=== PATIENT | female | born 1975 | race Caucasian/White ===

== ENCOUNTER → 2020-11-21 12:58 | Outpatient (CLI) | payer OTHER, SELFPAY ==
[2020-11-21 10:37] VITALS: BMI 38.1
[2020-11-23 22:02] LABS: HPV APTIMA, High Risk Negative (Negative)
== END ==
PROVIDERS: PCP Student in an Organized Health Care Education/Training Program; Referring Provider Nurse Practitioner Women's Health; Visit Provider Nurse Practitioner Women's Health
DX: Z12.4 Encounter for screening for malignant neoplasm of cervix (principal)
CPT/HCPCS: 87624; 88175; G0145

== ENCOUNTER → 2020-11-24 12:54 | Outpatient (CLI) | payer OTHER, SELFPAY ==
[2020-11-21 10:37] VITALS: BMI 38.1
--- NOTE | 2020-11-24 12:57 | BI_ITS ---
MAMMOGRAPHY - BILATERAL SCREENING 3-D TOMOSYNTHESIS REASON FOR EXAM: Female, 45 years old. screening for breast cancer PERTINENT HISTORY: No significant family history. TECHNIQUE: 2-D mammograms and 3-D Tomosynthesis of the breast (s) were performed. CAD was performed. COMPARISON: 05/28/2019 FINDINGS: The breast composition is of scattered fibroglandular tissue. Tiny benign egg-shell type calcification 2 o''clock on the left. No dense spiculated masses or suspicious microcalcifications are identified. No architectural distortion is identified. There is no skin thickening or retraction. There are benign-appearing lymph nodes in the axillary areas bilaterally There has been no significant change since the prior study since 05/28/2019. BI/SCRN MAMM (CAD)W/AIDE BILAT IMPRESSION: No mammographic signs of malignancy. Routine yearly mammograms recommended. ASSESSMENT CATEGORY: BIRADS Category 1: Negative. A letter regarding these results will be sent to the patient by the facility within 30 days. FOLLOW UP RECOMMENDATION: Yearly follow up mammogram recommended. (A) Approximately 10% of breast cancers are not detected by mammography. A normal mammogram should not delay biopsy of a clinically suspicious abnormality. Electronically Signed: Claudine Quintana, at 13:55 EDT Tel , Service support ,
== END ==
PROVIDERS: PCP Student in an Organized Health Care Education/Training Program; Referring Provider Nurse Practitioner Women's Health; Visit Provider Nurse Practitioner Women's Health
DX: Z12.31 Encounter for screening mammogram for malignant neoplasm of breast (principal)
CPT/HCPCS: 77063; 77067

== ENCOUNTER → 2021-12-08 | Outpatient (CLI) | payer OTHER, SELFPAY ==
--- NOTE | 2021-12-08 08:29 | BI_ITS ---
MAMMOGRAPHY - BILATERAL SCREENING REASON FOR EXAM: Female, 46 years old. Routine annual screening examination. PERTINENT HISTORY: Mother with breast cancer. TECHNIQUE: Digital bilateral breast aide (3D mammographic acquisition) in the CC and MLO projections. 2-D mediolateral oblique (MLO) and craniocaudad (CC) views of both breasts were obtained. CAD: Full Field Digital Mammography with Computer Added Detection was performed. COMPARISON: Comparison is made with prior study dated 11/24/2020. FINDINGS: Breast Composition: There are scattered areas of fibroglandular density. There are no dominant masses or suspicious calcifications. Stable benign-appearing bilateral axillary lymph nodes. No other significant abnormalities are identified. There has been no significant change since the prior study. BI/SCRN MAMM (CAD)W/AIDE BILAT IMPRESSION: Stable bilateral screening mammogram. Yearly follow-up mammogram recommended. (A) ASSESSMENT CATEGORY: BIRADS Category 2: Benign. A letter regarding these results will be sent to the patient by the facility within 30 days. Approximately 10% of breast cancers are not detected by mammography. A normal mammogram should not delay biopsy of a clinically suspicious abnormality. [id number] Electronically Signed: Ganesh Johnson MD at 9:17 EDT ,
== END | disposition home or self-care (01) ==
LOC: OPBI 08:28
PROVIDERS: PCP Student in an Organized Health Care Education/Training Program; Referring Provider Nurse Practitioner Women's Health; Visit Provider Nurse Practitioner Women's Health
DX: Z12.31 Encounter for screening mammogram for malignant neoplasm of breast (principal); Z80.3 Family history of malignant neoplasm of breast
CPT/HCPCS: 77063; 77067

== ENCOUNTER → 2022-12-10 | Outpatient (CLI) | payer OTHER, SELFPAY ==
--- NOTE | 2022-12-10 08:30 | BI_ITS ---
MAMMOGRAPHY - BILATERAL SCREENING REASON FOR EXAM: Female, 47 years old. Routine annual screening examination. PERTINENT HISTORY: Mother with breast cancer. TECHNIQUE: Digital bilateral breast aide (3D mammographic acquisition) in the CC and MLO projections. 2-D mediolateral oblique (MLO) and craniocaudad (CC) views of both breasts were obtained. CAD: Full Field Digital Mammography with Computer Added Detection was performed. COMPARISON: Comparison is made with prior study dated December 08, 2021 and November 24, 2020. FINDINGS: Breast Composition: There are scattered areas of fibroglandular density. There are no dominant masses or suspicious calcifications. Stable fat-containing bilateral axillary lymph nodes. No other significant abnormalities are identified. There has been no significant change since the prior study. BI/SCRN MAMM (CAD)W/AIDE BILAT IMPRESSION: Stable bilateral screening mammogram. Yearly follow-up mammogram recommended. (A) ASSESSMENT CATEGORY: BIRADS Category 2: Benign. A letter regarding these results will be sent to the patient by the facility within 30 days. Approximately 10% of breast cancers are not detected by mammography. A normal mammogram should not delay biopsy of a clinically suspicious abnormality. [id number] Electronically Signed: Ganesh Johnson MD at 13:13 EDT ,
== END | disposition home or self-care (01) ==
LOC: OPBI 08:28
PROVIDERS: PCP Student in an Organized Health Care Education/Training Program; Referring Provider Registered Nurse; Visit Provider Registered Nurse
DX: Z12.31 Encounter for screening mammogram for malignant neoplasm of breast (principal)
CPT/HCPCS: 77063; 77067

== ENCOUNTER → 2023-06-12 | Outpatient (CLI) | payer OTHER, SELFPAY ==
[2023-06-12 16:33] LABS: Absolute Lymphocyte Count 3.92 X10^3/uL (0.83-4.51); Basophil# 0.11 X10^3/uL; Basophil% 0.7 % (0-1); Eosinophil# 2.17 X10^3/uL; Eosinophils% 14.5 % (0-5); Hematocrit 39.2 % (37-47); Hemoglobin 12.4 g/dL (12.0-15.0); Lymphocyte # 3.92 X10^3/ul (0.83-4.51); Lymphocyte % 26.2 % (19-41); Mean Corp Hgb Conc 31.6 g/dL (32-36); Mean Corpuscular Volume 85.2 fL (81-99); Mean Platelet Vol. 11.4 fl (6.2-12.0); Monocyte# 0.72 X10^3/uL; Monocyte% 4.8 % (0-10); NRBC Flagged by Analyzer 0 % (0-5); Neutrophil # 7.99 X10^3/uL (2.7-7.7); Neutrophil % 53.3 % (47-70); POSITIVE DIFFERENTIAL YES; Platelet Count 341 K/mm3 (150-450); RBC Distribution Width CV 13.5 % (11.6-14.6); RBC Distribution Width SD 42.2 fl (35.1-43.9)
[2023-06-12 16:44] LABS: Differential Indicated SCAN CRITERIA MET
[2023-06-12 16:53] LABS: ALB/GLOB Ratio 0.8 RATIO (0.9-2.4); AST(SGOT) 12 U/L (15-37); Alanine Aminotransfer ALT/SGPT 17 U/L (13-56); Albumin, Serum 3.3 g/dL (3.2-5.0); Alkaline Phosphatase 102 U/L (45-117); Anion Gap 6 (5-15); BUN 15 mg/dL (7-18); BUN/Creat Ratio 20.4 RATIO (10-20); Calcium,Total 8.7 mg/dL (8.5-10.1); Chloride 109 mmol/L (98-107); Cholesterol 174 mg/dL (200); Creatinine, Serum 0.74 mg/dL (0.55-1.02); EST Glomerular Filtration Rate 90 mL/min (>60); Est Glom Filt Rate - Afr Amer 109 mL/min (>60); Globulin 4.3 g/dL (2.2-4.2); Glucose 89 mg/dL (74-106); High Density Lipoprotein 60 mg/dL; Potassium 3.9 mmol/L (3.5-5.1); Protein, Total 7.6 g/dL (6.4-8.2); Sodium Level 141 mmol/L (136-145); Triglycerides 110 mg/dL; Very Low Density Lipoprotein 22 mg/dL (5-40)
[2023-06-12 16:57] LABS: Differential Comment SCANNED
== END | disposition home or self-care (01) ==
LOC: BIMLAB 15:00
PROVIDERS: PCP Internal Medicine; Referring Provider Internal Medicine; Visit Provider Internal Medicine
DX: I10 Essential (primary) hypertension (principal)
CPT/HCPCS: 36415; 80053; 80061; 85025

== ENCOUNTER → 2023-06-28 | Outpatient (CLI) | payer OTHER, SELFPAY ==
--- OUTSIDE RECORDS SUMMARY | 2023-06-28 15:18 | XMS RPT_ITS | CCD ---
Author Name Unknown Address [address] [place] [address] Organization [facility] Care Team Providers Care Database Marketing Manager Name Role Phone Gavin Wang DO Jose Primary Care Provider Allergies Allergy Classification Reported Allergen(s) Allergy Type Date of Onset Reaction(s) Facility (6 sources) Azithromycin; Translations: [AZITHROMYCIN] Drug Allergy 6 Mental Status Change, Vomiting [facility] (5 sources) Environmental allergies [Other] Propensity to adverse reactions 8 [facility] (1 source) OTHER; Translations: [OTHER] Propensity to adverse reactions (disorder) 8 [facility] Repository Medications Current Medications Medication Drug Class(es) Dates Sig (Normalized) Sig (Original) ofloxacin 3 mg/ml ophthalmic solution (1 source) Quinolone Antimicrobial Start: 10-09-2021 End: 10-16-2021 take 2 drop(s) into the eye(s) every four hours ofloxacin (OCUFLOX) 0.3 % ophthalmic solution Use 2 Drops in both eyes every 4 hours for 7 days. 10 mL 0 10/09/2021 10/16/2021 Active Completed/Discontinued Medications Medication Drug Class(es) Dates Sig (Normalized) Sig (Original) >Blood Pressure Cuff Home (5 sources) Start: 12-06-2017 >Blood Pressure Cuff Home Indications: Borderline high blood pressure HOME BP CUFF, DX: HTN LABILE 1 Each 0 12/06/2017 Active Problems Active Problems Problem Classification Problem Date Documented Date Episodic/Chronic Anxiety disorders (5 sources) Acute stress disorder; Translations: [Acute stress reaction] Onset: 12-05-2018 12-05-2018 Chronic Asthma (6 sources) Uncomplicated moderate persistent asthma; Translations: [Moderate persistent asthma, uncomplicated] Onset: 12-27-2016 12-27-2016 Chronic Inflammation; infection of eye (except that caused by tuberculosis or sexually transmitteddisease) (1 source) Acute conjunctivitis of bilateral eyes; Translations: [Unspecified acute conjunctivitis, bilateral] Episodic Other circulatory disease (1 source) Elevated blood-pressure reading without diagnosis of hypertension; Translations: [Elevated blood-pressure reading, without diagnosis of hypertension] 02-08-2023 Episodic Other lower respiratory disease (1 source) Cough; Translations: [Acute cough] Episodic Other lower respiratory disease (1 source) H/O: asthma; Translations: [Personal history of other diseases of the respiratory system] Episodic Other screening for suspected conditions (not mental disorders or infectious disease) (2 sources) Patient encounter status; Translations: [Encounter for screening mammogram for malignant neoplasm of breast] Episodic Other upper respiratory disease (5 sources) Seasonal allergy; Translations: [Other seasonal allergic rhinitis] Onset: 06-27-2009 06-27-2009 Chronic Other upper respiratory infections (2 sources) Viral upper respiratory tract infection; Translations: [Acute upper respiratory infection, unspecified] Episodic Past or Other Problems Problem Classification Problem Date Documented Da te Episodic/Chronic Other connective tissue disease (5 sources) Impingement syndrome of right shoulder region; Translations: [Impingement syndrome of right shoulder] Onset: 12-26-2018 12-26-2018 Episodic Results Test Name Value Interpretation Reference Range Facil ity Vital Signs Date Time Vital Sign Value Performing Clinician Gee baeza 02-08-2023 09:26-0400 Body temperature 97.39 [degF] Vitor Luz MD Work Phone: [facility] 02-08-2023 09:26-0400 Body weight 83.55 kg Vitor Luz MD Work Phone: [facility] 02-08-2023 09:26-0400 Diastolic blood pressure 78 mm[Hg] Vitor Luz MD Work Phone: [facility] 02-08-2023 09:26-0400 Heart rate 72 /min Vitor Luz MD Work Phone: [facility] 02-08-2023 09:26-0400 Respiratory rate 18 /min Vitor Luz MD Work Phone: [facility] 02-08-2023 09:26-0400 SaO2% (BldA) [Mass fraction] 97 % Vitor Luz MD Work Phone: [facility] 02-08-2023 09:26-0400 Systolic blood pressure 187 mm[Hg] Vitor Luz MD Work Phone: [facility] 01-12-2022 14:23-0400 Body temperature 98.8 [degF] Austin Bebo VISION SPECIALIST.PILATES COORDINATOR Work Phone: [facility] 01-12-2022 14:23-0400 Body weight 90.63 kg Austin Bebo VISION SPECIALIST.PILATES COORDINATOR Work Phone: [facility] 01-12-2022 14:23-0400 Diastolic blood pressure 96 mm[Hg] Austin Bebo VISION SPECIALIST.PILATES COORDINATOR Work Phone: [facility] 01-12-2022 14:23-0400 Heart rate 98 /min Austin Bebo VISION SPECIALIST.PILATES COORDINATOR Work Phone: [facility] 01-12-2022 14:23-0400 Respiratory rate 20 /min Austin Bebo VISION SPECIALIST.PILATES COORDINATOR Work Phone: [facility] 01-12-2022 14:23-0400 SaO2% (BldA) [Mass fraction] 98 % Austin Bebo VISION SPECIALIST.PILATES COORDINATOR Work Phone: [facility] 01-12-2022 14:23-0400 Systolic blood pressure 150 mm[Hg] Austin Bebo VISION SPECIALIST.PILATES COORDINATOR Work Phone: [facility] 10-09-2021 16:23-0400 Body temperature 98.8 [degF] Jennifer Athy PA-C Work Phone: [facility] 10-09-2021 16:23-0400 Body weight 93.35 kg Jennifer Athy PA-C Work Phone: [facility] 10-09-2021 16:23-0400 Diastolic blood pressure 92 mm[Hg] Jennifer Athy PA-C Work Phone: [facility] 10-09-2021 16:23-0400 Heart rate 92 /min Jennifer Marina MESSER Work Phone: [facility] 10-09-2021 16:23-0400 Respiratory rate 20 /min Jennifer Marina COHEN-Lisa Work Phone: [facility] 10-09-2021 16:23-0400 SaO2% (BldA) [Mass fraction] 99 % Jennifer Gray PA-C Work Phone: [facility] 10-09-2021 16:23-0400 Systolic blood pressure 154 mm[Hg] Jennifer Gray PA-C Work Phone: [facility] Encounters Encounter Date Encounter Type Care Provider Facility Start: 02-08-2023 End: 02-08-2023 ambulatory GAVIN WANG Facility:[facility] Start: 02-08-2023 End: 02-08-2023 Patient encounter procedure Vitor Luz MD Work Phone: [facility] Procedures Date Procedure Procedure Detail Performing Clinician Start: 01-12-2022 Radiologic exam ches t 2 views Austin Lagunas VISION SPECIALIST.PILATES COORDINATOR Work Phone: Start: 01-12-2022 STREP A MOLECULAR (POC) [facility] Provider Start: 05-28-2019 Mammography Jennifer Gray PA-C Work Phone: Start: 12-05-2018 Adult depression scr eening assessment Jennifer Gray PA-C Work Phone: Plan of Treatment Date Care Activity Detail Author Start: 10-20-2025 Urine microalbumin profile DTAP,TDAP,TD (2 - Td or Tdap) [facility] Start: 02-01-2023 Influenza vaccination INFLUENZA (#1) [facility] Start: 06-03-2022 DEPRESSION ASSESSMENT DEPRESSION ASSESSMENT [facility] Start: 02-22-2022 LIPID SCREEN LIPID SCREEN [facility] Start: 02-01-2022 Influenza vaccination [facility] Start: 08-05-2021 COVID-19 VACCINE (3 - Booster) COVID-19 VACCINE (3 - Booster) [facility] Start: 05-02-2021 COVID-19 VACCINE (3 - Moderna series) COVID-19 VACCINE (3 - Moderna series) [facility] Start: 08-12-2020 COLOGUARD (FIT-DNA) COLOGUARD (FIT-DNA) [facility] Start: 08-12-2020 Colonoscopy COLONOSCOPY [facility] Start: 08-12-2020 COLORECTAL CANCER SCREENING COLORECTAL CANCER SCREENING [facility] Start: 08-12-[address] COLONOGRAPHY [facility] Start: 08-12-2020 DIABETES SCREEN DIABETES SCREEN [facility] Start: 08-12-2020 FECAL OCCULT BLOOD FECAL OCCULT BLOOD [facility] Start: 08-12-2020 SIGMOIDOSCOPY SIGMOIDOSCOPY [facility] Start: 05-28-2020 Mammography MAMMOGRAM [facility] Start: 12-06-2019 Adult depression screening assessment DEPRESSION SCREENING [facility] Start: 12-06-2019 ANNUAL PCP TEAM CHRONIC DISEASE VISIT ANNUAL PCP TEAM CHRONIC DISEASE VISIT [facility] Start: 10-06-2019 HPV TESTING HPV TESTING [facility] Start: 10-06-2019 PAP TESTING PAP TESTING [facility] Start: 02-28-2018 PNEUMOCOCCAL (2 - PCV) PNEUMOCOCCAL (2 - PCV) [facility] Start: 08-12-1993 HEPATITIS C SCREENING HEPATITIS C SCREENING [facility] Start: 1975 HEPATITIS B (1 of 3 - 3-dose series) HEPATITIS B (1 of 3 - 3-dose series) [facility] ALERE STREP A TEST (AG) ALERE ST REP A TEST (AG) Lab Routine Sore throat Ordered: 01/12/2022 [facility] Work Phone: Immunizations Immunization Date Immunization Notes Care Provider Stalin aguilar 03-07-2021 COVID-19 vaccine, fu ll dose (MODERNA) Jennifer Gray PA-C Work Phone: [facility] 03-09-2017 influenza, injectabl e, quadrivalent, contains preservative Jennifer Gray PA-C Work Phone: [facility] 02-28-2017 pneumococcal polysaccharide vaccine, 23 valent Jennifer Gray PA-C Work Phone: [facility] 02-25-2016 influenza, injectabl e, quadrivalent, contains preservative Jennifer Gray PA-C Work Phone: [facility] 10-21-2015 tetanus toxoid, redu brandon diphtheria toxoid, and acellular pertussis vaccine, adsorbed Jennifer Athy PA-C Work Phone: [facility] Work Phone: 03-05-2015 influenza, injectabl e, quadrivalent, contains preservative Jennifer Athy PA-C Work Phone: [facility] Work Phone: 03-11-2014 influenza, seasonal, injectable Jennifer Athy PA-C Work Phone: [facility] 03-14-2013 influenza virus vacc ine, unspecified formulation Jennifer Athy PA-C Work Phone: [facility] 03-01-2012 influenza virus vacc ine, unspecified formulation Jennifer Athy PA-C Work Phone: [facility] Work Phone: 03-22-2010 influenza virus vacc ine, unspecified formulation Jennifer Athy PA-C Work Phone: [facility] Work Phone: 09-01-2009 RHO(D) immune globul in- IV or IM Jennifer Athy PA-C Work Phone: [facility] 04-08-2009 influenza virus vacc ine, unspecified formulation Jennifer Athy PA-C Work Phone: [facility] Work Phone: 03-31-2009 novel influenza-H1N1 -09, all formulations Jennifer Athy PA-C Work Phone: [facility] 04-17-2008 influenza virus vacc ine, unspecified formulation Jennifer Athy PA-C Work Phone: [facility] Work Phone: 04-12-2007 influenza virus vacc ine, unspecified formulation Jennifer Athy PA-C Work Phone: [facility] Work Phone: 04-02-2006 influenza virus vacc ine, unspecified formulation Jennifer Athy PA-C Work Phone: [facility] Work Phone: Payers Date Payer Category Payer Unknown MMO MMO [employer] [id number] 2020-Present [phone] [address] [place] [address] PPO [id number] 2020 Unknown [id number] 2020 Unknown [id number] Social History Date Type Detail Facility Start: 01-29-2011 Tobacco smoking stat [facility] Never smoked tobacco [facility] Start: 10-09-2021 End: 02-08-2023 Alcohol intake Current non-drinker of alcohol (finding) [facility] Start: 1975 Sex Assigned At Not on file [facility] Start: 01-29-2011 Tobacco use and exposure Smokeless tobacco non-user [facility] Work Phone: Start: 01-02-2022 End: 01-12-2022 Exposure to SARS-CoV-2 (event) Not sure [facility] Start: 05-11-2020 End: 02-08-2023 History of Social function [facility] Start: 05-11-2020 End: 02-08-2023 Tobacco use panel [facility] Adult Depression Screening Assessment 0 [facility] Clinical Notes 10-24-2009 to 02-08-2023 Vitor Luz MD - 02/08/2023 9:31 AM Becky Lagunas APRN.PILATES COORDINATOR - 01/12/2022 5:57 PM Daysi Jaimes LPN - 12/13/2021 11:58 AM Migel Bella LPN - 11/23/2021 2:05 PM EDT Note Date & Type Note Facility 02-08-2023 Note HNO ID: [id number] Author: Vitor Luz MD Service: ? Author Type: Physician Type: Progress Notes Filed: 02/08/2023 10:05 AM Note Text: Patient presents with: Chest Congestion: SOB x1 week, asthma HPI: Feeling asthma is flared up for the last week. Woke up and used nebulizer twice last night. Prescribed prednisone for viral URI induced asthma exacerbation 1 year ago. Last primary care visit here was in 2019. Positive symptoms: Shortness of breath, Wheezing, Chest tightness, Negative symptoms: Cough, Nasal Congestion, Rhinorrhea, Fever, OTC: albuterol HFA once during the day. Uses pulmicort periodically - last used a week ago. MEDICATIONS: Current Outpatient Medications Medication Sig albuterol (PROVENTIL) 2.5 mg /3 mL (0.083 %) nebulizer solution Use 3 mL via nebulizer every 4 hours as needed. Use over 5-15minutes. ENSKYCE 0.15-0.03 mg per tablet take 1 tablet by mouth once daily budesonide (PULMICORT FLEXHALER) 90 mcg/actuation aepb Inhale 1 Puff as instructed twice daily. albuterol sulfate (PROAIR RESPICLICK) 90 mcg/actuation aepb Inhale 2 Puffs as instructed every 4 hours. cetirizine (ZYRTEC) 10 mg tablet Take 10 mg by mouth once daily. multivitamin tablet Take 1 tablet by mouth once daily. benzonatate (TESSALON PERLES) 100 mg capsule Take 2 capsules by mouth three times daily as needed. (Patient not taking: Reported on 01/12/2022) escitalopram oxalate (LEXAPRO) 10 mg tablet Take 1 tablet by mouth once daily. meloxicam (MOBIC) 15 mg tablet Take 1 tablet by mouth once daily. Take with food. (Patient not taking: Reported on 04/14/2019 ) montelukast (SINGULAIR) 10 mg tablet Take 1 tablet by mouth daily at bedtime. >Blood Pressure Cuff Home HOME BP CUFF, DX: HTN LABILE (Patient not taking: Reported on 12/24/2018 ) No current facility-administered medications for this visit. ALLERGIES: ALLERGIES Allergen Reactions Environmental Aller* Cats, dogs, dust mites, molds, trees, grasses, weeds, ragweed Zithromax [Azithrom* Mental Status Change, Vomiting dizzy VITALS: BP 187/78 Pulse 72 Temp 36.3 ?C (97.4 ?F) Resp 18 Wt 83.6 kg (184 lb 3.2 oz) LMP 12/19/2018 (Exact Date) SpO2 97% BMI 34.80 kg/m? Last 8 Encounter BP Readings: Date: BP: 02/08/2023 187/78 01/12/2022 150/96 10/09/2021 154/92 04/14/2019 136/86 12/26/2018 150/86 12/24/2018 136/86 12/05/2018 130/72 12/06/2017 140/78 PHYSICAL EXAM: GEN: Pleasant, in no acute distress. HEENT: PERRL, EOMI, conjunctiva clear Ears: canals clear. TMs without erythema, bulge, or effusion Sinuses: non-tender frontal sinus, non-tender maxillary sinuses Throat: moist mucous membranes, no erythema, no exudate Neck: supple, no thyromegaly, no lymphadenopathy HEART: regular rate and rhythm, no murmurs LUNGS: bilateral musical wheezes, no crackles, no increased WOB ASSESSMENT/PLAN: 1. Moderate persistent asthma, uncomplicated - ICD9: 493.90, ICD10: J45.40 (primary diagnosis) - PREDNISONE 20 MG TABLET 5 day burst. She reports an episode of sweating and heart racing while taking a taper a few years ago and has done OK with bursts since. 2. Elevated blood pressure reading without diagnosis of hypertension - ICD9: 796.2, ICD10: R03.0 Hypertension range BP readings here consistently. Advised follow up with primary care for hypertension and asthma. She is planning to schedule with the [facility] in [facility]. Vitor Luz MD [facility] 02-08-2023 History of Presen t illness Narrative Patient presents with: Chest Congestion: SOB x1 week, asthma HPI: Feeling asthma is flared up for the last week. Woke up and used nebulizer twice last night. Prescribed prednisone for viral URI induced asthma exacerbation 1 year ago. Last primary care visit here was in 2019. Positive symptoms: Shortness of breath, Wheezing, Chest tightness, Negative symptoms: Cough, Nasal Congestion, Rhinorrhea, Fever, OTC: albuterol HFA once during the day. Uses pulmicort periodically - last used a week ago. MEDICATIONS: Current Outpatient Medications Medication Sig albuterol (PROVENTIL) 2.5 mg /3 mL (0.083 %) nebulizer solution Use 3 mL via nebulizer every 4 hours as needed. Use over 5-15minutes. ENSKYCE 0.15-0.03 mg per tablet take 1 tablet by mouth once daily budesonide (PULMICORT FLEXHALER) 90 mcg/actuation aepb Inhale 1 Puff as instructed twice daily. albuterol sulfate (PROAIR RESPICLICK) 90 mcg/actuation aepb Inhale 2 Puffs as instructed every 4 hours. cetirizine (ZYRTEC) 10 mg tablet Take 10 mg by mouth once daily. multivitamin tablet Take 1 tablet by mouth once daily. benzonatate (TESSALON PERLES) 100 mg capsule Take 2 capsules by mouth three times daily as needed. (Patient not taking: Reported on 01/12/2022) escitalopram oxalate (LEXAPRO) 10 mg tablet Take 1 tablet by mouth once daily. meloxicam (MOBIC) 15 mg tablet Take 1 tablet by mouth once daily. Take with food. (Patient not taking: Reported on 04/14/2019 ) montelukast (SINGULAIR) 10 mg tablet Take 1 tablet by mouth daily at bedtime. >Blood Pressure Cuff Home HOME BP CUFF, DX: HTN LABILE (Patient not taking: Reported on 12/24/2018 ) No current facility-administered medications for this visit. ALLERGIES: ALLERGIES Allergen Reactions Environmental Aller* Cats, dogs, dust mites, molds, trees, grasses, weeds, ragweed Zithromax [Azithrom* Mental Status Change, Vomiting dizzy VITALS: BP 187/78 Pulse 72 Temp 36.3 C (97.4 F) Resp 18 Wt 83.6 kg (184 lb 3.2 oz) LMP 12/19/2018 (Exact Date) SpO2 97% BMI 34.80 kg/m Last 8 Encounter BP Readings: Date: BP: 02/08/2023 187/78 01/12/2022 150/96 10/09/2021 154/92 04/14/2019 136/86 12/26/2018 150/86 12/24/2018 136/86 12/05/2018 130/72 12/06/2017 140/78 PHYSICAL EXAM: GEN: Pleasant, in no acute distress. HEENT: PERRL, EOMI, conjunctiva clear Ears: canals clear. TMs without erythema, bulge, or effusion Sinuses: non-tender frontal sinus, non-tender maxillary sinuses Throat: moist mucous membranes, no erythema, no exudate Neck: supple, no thyromegaly, no lymphadenopathy HEART: regular rate and rhythm, no murmurs LUNGS: bilateral musical wheezes, no crackles, no increased WOB ASSESSMENT/PLAN: 1. Moderate persistent asthma, uncomplicated - ICD9: 493.90, ICD10: J45.40 (primary diagnosis) - PREDNISONE 20 MG TABLET 5 day burst. She reports an episode of sweating and heart racing while taking a taper a few years ago and has done OK with bursts since. 2. Elevated blood pressure reading without diagnosis of hypertension - ICD9: 796.2, ICD10: R03.0 Hypertension range BP readings here consistently. Advised follow up with primary care for hypertension and asthma. She is planning to schedule with the [facility] in [facility]. Vitor Luz MD documented in this encounter [facility] 01-12-2022 History of Presen t illness Narrative Subjective HPI HPI Paige Troncoso is a 46 year old female who presents today for CC of wheezing for 2 weeks, st, congsetion for 2 days. Has tried otc medication and asthma medication for relief. Symptoms are worsened by nothing. Risk factors hx of asthma. Denies cp, ear pain, fever, rash. .Patient presents with: Sore Throat: ARRIETA, cough, asthma flare x2 days PAST MEDICAL HISTORY Diagnosis Date Asthma ALLERGY-INDUCED Contact dermatitis and other eczema due to other specified agent 01/12/2008 EXCORIATION////SUPERFICIAL INJURY NEC 01/12/2008 GERD (gastroesophageal reflux disease) 06/27/2009 XEROSIS////SEBACEOUS GLAND DIS NEC 01/12/2008 PAST SURGICAL HISTORY Procedure Laterality Date DELIVERY ONLY 2005 TWINS DELIVERY ONLY 2009 , low transverse ALLERGIES Environmental Allergies [Other] and Zithromax [Azithromycin] MEDICATIONS ENSKYCE 0.15-0.03 mg per tablet take 1 tablet by mouth once daily budesonide (PULMICORT FLEXHALER) 90 mcg/actuation aepb Inhale 1 Puff as instructed twice daily. albuterol sulfate (PROAIR RESPICLICK) 90 mcg/actuation aepb Inhale 2 Puffs as instructed every 4 hours. cetirizine (ZYRTEC) 10 mg tablet Take 10 mg by mouth once daily. multivitamin tablet Take 1 tablet by mouth once daily. predniSONE (DELTASONE) 20 mg tablet Take 2 tablets by mouth once daily for 5 days. albuterol (PROVENTIL) 2.5 mg /3 mL (0.083 %) nebulizer solution Use 3 mL via nebulizer every 4 hours as needed. Use over 5-15minutes. benzonatate (TESSALON PERLES) 100 mg capsule Take 2 capsules by mouth three times daily as needed. (Patient not taking: Reported on 01/12/2022) escitalopram oxalate (LEXAPRO) 10 mg tablet Take 1 tablet by mouth once daily. meloxicam (MOBIC) 15 mg tablet Take 1 tablet by mouth once daily. Take with food. (Patient not taking: Reported on 04/14/2019 ) montelukast (SINGULAIR) 10 mg tablet Take 1 tablet by mouth daily at bedtime. >Blood Pressure Cuff Home HOME BP CUFF, DX: HTN LABILE (Patient not taking: Reported on 12/24/2018 ) FAMILY HISTORY Problem Relation Age of Onset Breast Cancer Mother 46 Diabetes Mother Emphysema Maternal Grandfather Heart Maternal Grandfather Alzheimer's Disease Paternal Grandmother Social History Tobacco Use Smoking status: Never Smokeless tobacco: Never Substance Use Topics Alcohol use: No Drug use: No ROS Objective Blood pressure 150/96, pulse 98, temperature 37.1 C (98.8 F), resp. rate 20, weight 90.6 kg (199 lb 12.8 oz), last menstrual period 12/19/2018, SpO2 98 %. Physical Exam Constitutional: General: She is not in acute distress. Appearance: She is not toxic-appearing or diaphoretic. HENT: Head: Normocephalic and atraumatic. Mouth/Throat: Lips: [place]. Mouth: Mucous membranes are moist. Pharynx: Oropharyngeal exudate and posterior oropharyngeal erythema present. No pharyngeal swelling. Cardiovascular: Rate and Rhythm: Normal rate and regular rhythm. Heart sounds: Normal heart sounds, S1 normal and S2 normal. Pulmonary: Effort: Pulmonary effort is normal. Breath sounds: Wheezing present. No decreased breath sounds, rhonchi or rales. Comments: Scattered bilat. Neurological: Mental Status: She is alert and oriented to person, place, and time. Gait: Gait is intact. ASSESSMENT/PLAN: 1. Acute cough - ICD9: 786.2, ICD10: R05.1 (primary diagnosis) Asthma flair and viral illness. Discussed quarantine, social distancing otc medications discussed Push fluids -If you experience chest pain/shortness of breath go to ER. - XR CHEST 2V FRONTAL/LAT - 2019 CORONAVIRUS - PREDNISONE 20 MG TABLET 2. Sore throat - ICD9: 462, ICD10: J02.9 - suspect viral - Alere Strep Test negative, no culture pending - Discussed supportive care treatment with fluids, rest and analgesia. - Contagious dz precautions discussed- including considered contagious until on antibiotics for 24 hours - ALERE STREP A TEST (AG) - PREDNISONE 20 MG TABLET 3. History of asthma - ICD9: V12.69, ICD10: Z87.09 Steroid ordered Nebulizer fluid ordered. - PREDNISONE 20 MG TABLET - ALBUTEROL SULFATE 2.5 MG/3 ML (0.083 %) SOLUTION FOR NEBULIZATION Agrees to plan Austin Lagunas APRN.GORDY documented in this encounter [facility] 12-13-2021 History of Presen t illness Narrative Pt. informed via My Chart. Lizbeth Jaimes LPN TC to patient, left message to return call Please clarify if patient has been notified/called and is willing to complete the colonoscopy if orders are placed? Gavin Wang DO Patient due for Colonoscopy screening. Cleared for open access pending completion of open access questionaire. Please contact patient and schedule procedure Yimi Holt documented in this encounter [facility] 11-21-2021 Instructions Yimi Holt - 11/21/2021 2:15 PM EDT Images from the original note were not included. Bowel Preparation Instructions for: Golytely, Nulytely, Trilyte or Colyte (polyethylene glycol 3350 and electrolytes) IF YOU DO NOT FOLLOW THESE DIRECTIONS, YOUR COLONOSCOPY WILL BE CANCELLED. Sandy Instructions: Your bowel must be empty so that your doctor can clearly view your colon. Follow all of the instructions in this handout EXACTLY as they are written. Do NOT eat any solid food the ENTIRE day before your colonoscopy. Drink only clear liquids. Buy your bowel preparation at least 5 days before your colonoscopy. TRANSPORTATION on the Day of Your Exam A responsible person MUST be present with you at Check In prior to your colonoscopy and REMAIN in the endoscopy area until you are discharged. You are NOT ALLOWED to drive, take a taxi or bus, or leave the Endoscopy Center ALONE. If you do not have a responsible tier truck driver (family member or friend) with you to take you home, your exam cannot be done with sedation and will be cancelled. Please bring a list of all of your current medications, including any Over-the Counter medications with you. Medications If you take insulin, diabetic medications or blood thinners such as Coumadin (warfarin), Plavix (clopidogrel), Ticlid (ticlopidine hydrochloride), Agrylin (anagrelide), Xarelto (Rivaroxaban), Pradaxa (Dabigatran), Eliquis (Apixaban), and Effient (Prasugrel). You MUST call the doctors who orders those medicines for instructions on altering the dosage before your colonoscopy. All other medications should be taken the day of the exam with a sip of water including ASPIRIN. Five (5) Days Before Your Colonoscopy Do NOT take medicines that stop diarrhea - such as Imodium, Kaopectate, or Pepto Bismol. Do NOT take fiber supplements - such as Metamucil, Citrucel, or Perdiem. Do NOT take products that contain iron - such as multi-vitamins (the label lists what is in the products). Do NOT take Vitamin E. Buy the prescription bowel preparation solution at your local pharmacy or drugstore pharmacy. 1 05/2019 Bowel Preparation Instructions for: Golytely, Nulytely, Trilyte or Colyte (polyethylene glycol 3350 and electrolytes) Three (3) Days Before Your Colonoscopy Do NOT eat high-fiber foods - such as popcorn, beans, seeds (flax, sunflower, quinoa), multigrain bread, nuts, salad/vegetables, or fresh and dried fruit. One (1) Day Before Your Colonoscopy Only drink clear liquids the ENTIRE DAY before your colonoscopy. Do NOT eat any solid foods. Drink at least 8 ounces of clear liquids every hour after waking up. The clear liquids you can drink include: Clear Liquid (NO RED LIQUIDS) DO NOT DRINK Gatorade, Pedialyte or Powerade Clear broth or bouillon Coffee or tea (no milk or non-dairy creamer) Carbonated and non-carbonated soft drinks Adam-Aid or other fruit flavored drinks Strained fruit juices (no pulp) Jell-O, popsicles, hard candy Water Alcohol Milk or non-dairy creamers Noodles or vegetables in soup Juice with pulp Liquid you cannot see through The bowel preparation solution will be consumed in two parts. Mix the solution the evening before your colonoscopy and refrigerate before drinking. You may add the flavor pack that came with the bowel preparation. Do NOT add ice, sugar or any other flavorings to the solution. Part 1 At 6:00 PM - Evening before your colonoscopy Drink an 8-oz glass of bowel preparation every 10 minutes for a total of 8 glasses. You may continue to drink clear liquids until midnight. Part 2 On the day of your colonoscopy you may drink clear liquids up to (three) 3 hours before your procedure. 4 1/2 hours before your colonoscopy Drink an 8-oz glass of bowel preparation every 10 minutes for a total of 8 glasses. Fifteen (15) minutes later, drink an 8-oz glass of clear liquids every 15 minutes for a total of 2 glasses. You may continue to drink clear liquids up to (three) 3 hours before your exam. 3 05/2019 documented in this encounter [facility] 10-09-2021 History of Presen t illness Narrative This note was created using NoteWriter. Subjective Paige Troncoso is a 46 year old female. HPI Patient presents with sinus congestion, cough, nasal congestion for 5 days. Past 2 days she has had drainage out of both of her eyes. She does wear contacts. No fevers or chills. 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 She denies loss of smell or taste. No vomiting or diarrhea. No chest pain or shortness of breath. She has been wheezing. She has a history of asthma. She has been using her inhaler more. Review of Systems Constitutional: Negative. HENT: Positive for congestion and sinus pressure. Negative for ear pain. Respiratory: Positive for cough and wheezing. Negative for shortness of breath. Cardiovascular: Negative. Gastrointestinal: Negative. Genitourinary: Negative. Musculoskeletal: Negative. Neurological: Positive for headaches. All other systems reviewed and are negative. PAST MEDICAL HISTORY Diagnosis Date Asthma ALLERGY-INDUCED Contact dermatitis and other eczema due to other specified agent 01/12/2008 EXCORIATION////SUPERFICIAL INJURY NEC 01/12/2008 GERD (gastroesophageal reflux disease) 06/27/2009 XEROSIS////SEBACEOUS GLAND DIS NEC 01/12/2008 Current Outpatient Medications Medication Sig Dispense Refill ENSKYCE 0.15-0.03 mg per tablet take 1 tablet by mouth once daily 84 tablet 1 budesonide (PULMICORT FLEXHALER) 90 mcg/actuation aepb Inhale 1 Puff as instructed twice daily. 1 Inhaler 11 albuterol sulfate (PROAIR RESPICLICK) 90 mcg/actuation aepb Inhale 2 Puffs as instructed every 4 hours. 1 Inhaler 2 cetirizine (ZYRTEC) 10 mg tablet Take 10 mg by mouth once daily. multivitamin tablet Take 1 tablet by mouth once daily. 0 predniSONE (DELTASONE) 20 mg tablet Take 2 tablets by mouth once daily for 5 days. 10 tablet 0 ofloxacin (OCUFLOX) 0.3 % ophthalmic solution Use 2 Drops in both eyes every 4 hours for 7 days. 10 mL 0 benzonatate (TESSALON PERLES) 100 mg capsule Take 2 capsules by mouth three times daily as needed. 30 capsule 0 escitalopram oxalate (LEXAPRO) 10 mg tablet Take 1 tablet by mouth once daily. 90 tablet 3 meloxicam (MOBIC) 15 mg tablet Take 1 tablet by mouth once daily. Take with food. (Patient not taking: Reported on 04/14/2019 ) 30 tablet 1 montelukast (SINGULAIR) 10 mg tablet Take 1 tablet by mouth daily at bedtime. 90 tablet 3 >Blood Pressure Cuff Home HOME BP CUFF, DX: HTN LABILE (Patient not taking: Reported on 12/24/2018 ) 1 Each 0 No current facility-administered medications for this visit. PAST SURGICAL HISTORY Procedure Laterality Date DELIVERY ONLY 2005 TWINS DELIVERY ONLY 2009 , low transverse FAMILY HISTORY Problem Relation Age of Onset Breast Cancer Mother 46 Diabetes Mother Emphysema Maternal Grandfather Heart Maternal Grandfather Alzheimer's Disease Paternal Grandmother Social History Tobacco Use Smoking status: Never Smoker Smokeless tobacco: Never Used Substance Use Topics Alcohol use: No Drug use: No Objective BP 154/92 Pulse 92 Temp 37.1 C (98.8 F) Resp 20 Wt 93.4 kg (205 lb 12.8 oz) LMP 12/19/2018 (Exact Date) SpO2 99% BMI 38.89 kg/m Physical Exam Vitals reviewed. Constitutional: Appearance: Normal appearance. HENT: Head: Normocephalic and atraumatic. Right Ear: Tympanic membrane, ear canal and external ear normal. Left Ear: Tympanic membrane, ear canal and external ear normal. Nose: Congestion present. Right Sinus: Frontal sinus tenderness present. Left Sinus: Frontal sinus tenderness present. Mouth/Throat: Mouth: Mucous membranes are moist. Pharynx: Oropharynx is clear. Eyes: Comments: Mild bilateral conjunctival erythema and swelling. Scleral injection bilaterally, right worse than left. No sign of orbital periorbital cellulitis. Cardiovascular: Rate and Rhythm: Normal rate and regular rhythm. Heart sounds: Normal heart sounds. Pulmonary: Effort: Pulmonary effort is normal. No respiratory distress. Breath sounds: Wheezing present. No rhonchi or rales. Musculoskeletal: Cervical back: Neck supple. Lymphadenopathy: Cervical: No cervical adenopathy. Skin: General: Skin is warm and dry. Neurological: Mental Status: She is alert. Assessment and Plan ASSESSMENT/PLAN: 1. Viral URI - ICD9: 465.9, ICD10: J06.9 - Discussed viral etiology and rationale for treatment. - Symptomatic treatment with prn analgesia - Supportive care with fluids and rest - prednisone for the wheeze. Recommended flonase and given tessalon. Patient declined covid19 testing. 2. Acute conjunctivitis of both eyes, unspecified acute conjunctivitis type - ICD9: 372.00, ICD10: H10.33 - see medication orders - course and contagiousness issues discussed, including hand washing. - Instructed to call if high fever, development of periorbital redness or swelling, eye pain, visual changes, concerns or if symptoms persist. GUI Odonnell PA-C documented in this encounter [facility] documented as of this encounter (statuses as of 10/09/2021) [facility] History of Past illness Narrative* Problem Noted Date Resolved Date Transient hypertension of , antepartum 10/24/2009 11/23/2009 Asthma 06/27/2009 08/12/2017 GERD (gastroesophageal reflux disease) 0 12/05/2018 Supervision of normal 05/31/2009 02/01/2010 Contact dermatitis and other eczema, due to unspecified cause 01/12/2008 02/01/2010 Contact dermatitis and other eczema due to other specified agent 01/12/2008 12/05/2018 XEROSIS////SEBACEOUS GLAND DIS NEC 01/12/2008 12/05/2018 Unspecified pruritic disorder 01/12/2008 EXCORIATION////SUPERFICIAL INJURY NEC 01/12/2008 12/05/2018 Other atopic dermatitis and related conditions 0 01/12/2008 12/05/2018 documented as of this encounter (statuses as of 12/04/2021) [facility] History of Past illness Narrative* Problem Noted Date Resolved Date Transient hypertension of , antepartum 10/24/2009 11/23/2009 Asthma 06/27/2009 08/12/2017 GERD (gastroesophageal reflux disease) 0 12/05/2018 Supervision of normal 05/31/2009 02/01/2010 Contact dermatitis and other eczema, due to unspecified cause 01/12/2008 02/01/2010 Contact dermatitis and other eczema due to other specified agent 01/12/2008 12/05/2018 XEROSIS////SEBACEOUS GLAND DIS NEC 01/12/2008 12/05/2018 Unspecified pruritic disorder 01/12/2008 EXCORIATION////SUPERFICIAL INJURY NEC 01/12/2008 12/05/2018 Other atopic dermatitis and related conditions 0 01/12/2008 12/05/2018 documented as of this encounter (statuses as of 12/13/2021) [facility] History of Past illness Narrative* Problem Noted Date Resolved Date Transient hypertension of , antepartum 10/24/2009 11/23/2009 Asthma 06/27/2009 08/12/2017 GERD (gastroesophageal reflux disease) 0 12/05/2018 Supervision of normal 05/31/2009 02/01/2010 Contact dermatitis and other eczema, due to unspecified cause 01/12/2008 02/01/2010 Contact dermatitis and other eczema due to other specified agent 01/12/2008 12/05/2018 XEROSIS////SEBACEOUS GLAND DIS NEC 01/12/2008 12/05/2018 Unspecified pruritic disorder 01/12/2008 EXCORIATION////SUPERFICIAL INJURY NEC 01/12/2008 12/05/2018 Other atopic dermatitis and related conditions 0 01/12/2008 12/05/2018 documented as of this encounter (statuses as of 01/12/2022) [facility] History of Past illness Narrative* Problem Noted Date Diagnosed Date Resolved Date Transient hypertension of pr egnancy, antepartum 10/24/2009 11/23/2009 Asthma 06/27/2009 08/12/2017 GERD (gastroesophageal reflux disease) 06/27/2009 12/05/2018 Supervision of normal 05/31/2009 02/01/2010 Contact dermatitis and other eczema, due to unspecified cause 01/12/2008 02/01/2010 Contact dermatitis and other eczema due to other specified agent 01/12/2008 12/05/2018 XEROSIS////SEBACEOUS GLAND DIS NEC 01/12/2008 12/05/2018 Unspecified pruritic disorder 01/12/2008 02/01/2010 EXCORIATION////SUPERFICIAL INJURY NEC 01/12/2008 12/05/2018 Other atopic dermatitis and related conditions 01/12/2008 12/05/2018 documented as of this encounter (statuses as of 02/08/2023) [facility] Viral URI- Primary Acute upper respiratory infections of unspecified site Acute conjunctivitis of both eyes, unspecified acute conjunctivitis type documented in this encounter [facility] note* Diagnosis Encounter for screening mammogram for breast cancer documented in this encounter [facility] note* Diagnosis Screen for colon cancer- Primary Special screening for malignant neoplasms, colon documented in this encounter [facility] note* Diagnosis Acute cough- Primary Sore throat Acute pharyngitis History of asthma Personal history of other diseases of respiratory system documented in this encounter [facility] note* Diagnosis Moderate persistent asthma, uncomplicated- Primary Unspecified asthma Elevated blood pressure reading without diagnosis of hypertension [facility] Diagnostic Procedure Only (Routine) - Pending Review Specialty Diagnoses / Procedures Referred By Florencia chanel Referred To Contact [facility] Diagnoses Encounter for screening mammogram for breast cancer Procedures NIKKIE SCREENING W AIDE SCREENING DIGITAL BREAST TOMOSYNTHESIS BI SCREENING MAMMOGRAPHY BI 2-VIEW BREAST INC Gavin Romeo DO [address] [place] [address] [facility] [address] [place] [address] Referral ID Status Reason Start Date Expiration Date Visits Requested Visits Authorized [id number] Pending Review Auto-Generat ed Referral 11/29/2021 12/29/2022 1 1 [facility] Summary Purpose Family History No Family History Records Found Advance Directives No Advanced Directives Records Found Additional Source Comments Source Comments (unrecognize d section and content) In the event this informatio n is protected by the Federal Confidentiality of Alcohol and Drug Abuse Patient Records regulations: The Federal rules restrict any use of the information to criminally investigate or prosecute any alcohol or drug abuse patient.[facility] the event this information is protected by the Federal Confidentiality of Alcohol and Drug Abuse Patient Records regulations: The Federal rules restrict any use of the information to criminally investigate or prosecute any alcohol or drug abuse patient.[facility] the event this information is protected by the Federal Confidentiality of Alcohol and Drug Abuse Patient Records regulations: The Federal rules restrict any use of the information to criminally investigate or prosecute any alcohol or drug abuse patient.[facility] event this information is protected by the Federal Confidentiality of Alcohol and Drug Abuse Patient Records regulations: The Federal rules restrict any use of the information to criminally investigate or prosecute any alcohol or drug abuse patient.[facility] event this information is protected by the Federal Confidentiality of Alcohol and Drug Abuse Patient Records regulations: The Federal rules restrict any use of the information to criminally investigate or prosecute any alcohol or drug abuse patient.[facility] Reason for Visit (unrecogniz ed section and content) Reason Onset Date Comments Outpatient Colonoscopy 11/21/2021 Reason Comments Sore Throat ARRIETA, cough, asthma fl are x2 days Reason Comments Chest Congestion SOB x1 week, asthma Care Teams (unrecognized sec tion and content) Database Marketing Manager Relationship Specialty Start Date End Date Gavin Wang DO [address], [place] [address] PCP - General Family Practice 09/08/15 Database Marketing Manager Relationship Specialty Start Date End Date Gavin Wang, DO [address], [place] [id number] PCP - General Family Practice 09/08/15 Database Marketing Manager Relationship Specialty Start Date End Date Gavin Wang DO [address], [place] [id number] PCP - General Family Practice 09/08/15 Database Marketing Manager Relationship Specialty Start Date End Date Gavin Wang DO [address], [place] [id number] PCP - General Family Medicine 09/08/15 INFORMATION SOURCE (unrecogn ized section and content) FOR RECORDS PERTAINING TO PATIENTS WHO ARE OR HAVE BEEN ENROLLED IN A CHEMICAL DEPENDENCY/SUBSTANCEABUSE PROGRAM, SOME INFORMATION MAY BE OMITTED. This clinical summary was aggregated from multiple sources. Caution should be exercised in using it in the provision of clinical care. This summary normalizes information from multiple sources, and as a consequence, information in this document may materially change the coding, format and clinical context of patient data. In addition, data may be omitted in some cases. CLINICAL DECISIONS SHOULD BE BASED ON THE PRIMARY CLINICAL RECORDS. [employer] provides no warranty or guarantee of the accuracy or completeness of information in this document.
[2023-06-28 17:01] LABS: Anion Gap 5 (5-15); BUN 20 mg/dL (7-18); BUN/Creat Ratio 25.3 RATIO (10-20); Calcium,Total 9.5 mg/dL (8.5-10.1); Chloride 103 mmol/L (98-107); Creatinine, Serum 0.79 mg/dL (0.55-1.02); EST Glomerular Filtration Rate 83 mL/min (>60); Est Glom Filt Rate - Afr Amer 100 mL/min (>60); Glucose 93 mg/dL (74-106); Potassium 3.7 mmol/L (3.5-5.1); Sodium Level 138 mmol/L (136-145)
== END | disposition home or self-care (01) ==
LOC: BIMLAB 15:05
PROVIDERS: PCP Internal Medicine; Referring Provider Internal Medicine; Visit Provider Internal Medicine
DX: I10 Essential (primary) hypertension (principal)
CPT/HCPCS: 36415; 80048

== ENCOUNTER → 2023-12-26 | Outpatient (CLI) | payer OTHER, SELFPAY ==
--- NOTE | 2023-12-26 07:29 | BI_ITS ---
MAMMOGRAPHY - BILATERAL SCREENING REASON FOR EXAM: Female, 48 years old. Routine annual screening examination. PERTINENT HISTORY: Mother with breast cancer. TECHNIQUE: Digital bilateral breast aide (3D mammographic acquisition) in the CC and MLO projections. 2-D mediolateral oblique (MLO) and craniocaudad (CC) views of both breasts were obtained. CAD: Full Field Digital Mammography with Computer Added Detection was performed. COMPARISON: Comparison is made with prior study dated December 10, 2022 and December 08, 2021. FINDINGS: Breast Composition: There are scattered areas of fibroglandular density. There are no dominant masses or suspicious calcifications. No other significant abnormalities are identified. There has been no significant change since the prior study. BI/SCRN MAMM (CAD)W/AIDE BILAT IMPRESSION: Stable bilateral screening mammogram. Yearly follow-up mammogram recommended. (A) ASSESSMENT CATEGORY: BIRADS Category 1: Negative. A letter regarding these results will be sent to the patient by the facility within 30 days. Approximately 10% of breast cancers are not detected by mammography. A normal mammogram should not delay biopsy of a clinically suspicious abnormality. [id number] Electronically Signed: Ganesh Johnson MD at 8:47 EDT ,
== END | disposition home or self-care (01) ==
LOC: OPBI 07:29
PROVIDERS: PCP Internal Medicine; Referring Provider Nurse Practitioner Women's Health; Visit Provider Nurse Practitioner Women's Health
DX: Z12.31 Encounter for screening mammogram for malignant neoplasm of breast (principal); Z80.3 Family history of malignant neoplasm of breast
CPT/HCPCS: 77063; 77067

== ENCOUNTER → 2024-05-28 | Outpatient (CLI) | payer OTHER, SELFPAY ==
[2024-05-28 15:09] LABS: Absolute Lymphocyte Count 4.22 X10^3/uL (0.83-4.51); Absolute Neutrophil Count 6.8 X10^3/uL (2.0-7.7); Basophil% 0.8 % (0-1); Eosinophil# 0.64 X10^3/uL; Eosinophils% 5.2 % (0-5); Hematocrit 36.7 % (37-47); Hemoglobin 12.1 g/dL (12.0-15.0); Lymphocyte # 4.22 X10^3/ul (0.83-4.51); Lymphocyte % 34.1 % (19-41); Mean Corpuscular Hgb 27.7 pg (27.0-32.0); Mean Platelet Vol. 11.6 fl (6.2-12.0); Monocyte# 0.56 X10^3/uL; Monocyte% 4.5 % (0-10); NRBC Flagged by Analyzer 0 % (0-5); Neutrophil # 6.79 X10^3/uL (2.7-7.7); Neutrophil % 54.9 % (47-70); Platelet Count 315 K/mm3 (150-450); RBC Distribution Width CV 13.5 % (11.6-14.6); RBC Distribution Width SD 41.3 fl (35.1-43.9); Red Blood Count 4.37 M/mm3 (4.2-5.4); White Blood Count 12.4 K/mm3 (4.4-11.0)
[2024-05-28 15:44] LABS: ALB/GLOB Ratio 0.8 RATIO (0.9-2.4); AST(SGOT) 8 U/L (15-37); Alanine Aminotransfer ALT/SGPT 14 U/L (13-56); Albumin, Serum 3.1 g/dL (3.2-5.0); Alkaline Phosphatase 88 U/L (45-117); Anion Gap 7 (5-15); BUN 17 mg/dL (7-18); BUN/Creat Ratio 24.9 RATIO (10-20); Calcium,Total 8.6 mg/dL (8.5-10.1); Chloride 107 mmol/L (98-107); Cholesterol 183 mg/dL (200); Creatinine, Serum 0.68 mg/dL (0.55-1.02); EST Glomerular Filtration Rate 97 mL/min (>60); Est Glom Filt Rate - Afr Amer 118 mL/min (>60); Globulin 4.1 g/dL (2.2-4.2); Glucose 121 mg/dL (74-106); High Density Lipoprotein 58 mg/dL; Potassium 3.5 mmol/L (3.5-5.1); Protein, Total 7.2 g/dL (6.4-8.2); Sodium Level 139 mmol/L (136-145); T4 Free Direct 0.88 ng/dL (0.76-1.46); Triglycerides 181 mg/dL; Very Low Density Lipoprotein 36 mg/dL (5-40)
[2024-06-08 19:07] LABS: ALDOSTERONE/RENIN RATIO 1.8 (0.0-30.0); Aldosterone, Serum 10.3 ng/dL (0.0-30.0)
== END | disposition home or self-care (01) ==
LOC: BIMLAB 13:18
PROVIDERS: PCP Internal Medicine; Referring Provider Internal Medicine; Visit Provider Internal Medicine
DX: J45.909 Unspecified asthma, uncomplicated (principal); I10 Essential (primary) hypertension
CPT/HCPCS: 36415; 80053; 80061; 82088; 84244; 84439; 84443; 85025

== ENCOUNTER → 2024-08-24 | Outpatient (CLI) | payer OTHER, SELFPAY ==
[2024-08-24 22:31] LABS: Anion Gap 12 (5-15); BUN 14 mg/dL (4-19); BUN/Creat Ratio 20.4 RATIO (10-20); Calcium,Total 9.6 mg/dL (7.6-11.0); Carbon Dioxide 27.7 mmol/L (21.0-32.0); Chloride 100 mmol/L (98-108); Creatinine, Serum 0.69 mg/dL (0.70-1.20); EST Glomerular Filtration Rate 106 (>60); Glucose 93 mg/dL (70-99); Potassium 3.5 mmol/L (3.3-5.1); Sodium Level 140 mmol/L (133-145)
[2024-08-25 22:31] LABS: Hemoglobin A1c 5.5 % (<=5.6)
== END | disposition home or self-care (01) ==
LOC: BIMLAB 15:08
PROVIDERS: PCP Internal Medicine; Referring Provider Internal Medicine; Visit Provider Internal Medicine
DX: R73.9 Hyperglycemia, unspecified (principal); I10 Essential (primary) hypertension
CPT/HCPCS: 36415; 80048; 83036

== ENCOUNTER → 2024-12-28 | Outpatient (CLI) | payer OTHER, SELFPAY ==
--- NOTE | 2024-12-28 10:15 | BI_ITS ---
EXAM: SCRN MAMM (CAD)W/AIDE BILAT DATE: 12/28/2024 CLINICAL HISTORY: F, Age 49 y/o , SCREEN FOR BREAST CANCER Mother with breast cancer. TECHNIQUE: SCRN MAMM (CAD)W/AIDE BILAT COMPARISON: Prior exam(s) dated December 26, 2023.. FINDINGS: TISSUE DENSITY: The breasts are almost entirely fatty. Bilateral Breast Mammographic Findings: No significant masses, calcifications or other abnormalities are identified. Stable bilateral fat containing axillary lymph nodes. No suspicious masses, areas of developing architectural distortion, or suspicious calcifications. There has been no significant interval change. BI/SCRN MAMM (CAD)W/AIDE BILAT IMPRESSION: Stable examination. OVERALL FINAL ASSESSMENT BI-RADS 2: BENIGN RECOMMENDATION: Routine annual follow-up in 1 Year A letter with findings and recommendations will be mailed to the patient. Reading Location: [id number]
== END | disposition home or self-care (01) ==
PROVIDERS: PCP Internal Medicine; Referring Provider Nurse Practitioner Women's Health; Visit Provider Nurse Practitioner Women's Health
DX: Z12.31 Encounter for screening mammogram for malignant neoplasm of breast (principal)
CPT/HCPCS: 77063; 77067

== ENCOUNTER → 2025-04-15 | Outpatient (CLI) | payer OTHER, SELFPAY ==
[2025-04-15 18:04] LABS: Hematocrit 36.2 % (37-47); Hemoglobin 11.7 g/dL (12.0-15.0); Immature Granulocytes Count 0.050 X10^3/uL (0.0-0.0); Mean Corp Hgb Conc 32.3 g/dL (32-36); Mean Corpuscular Volume 83.6 fL (81-99); Mean Platelet Vol. 10.8 fl (6.2-12.0); NRBC Flagged by Analyzer 0 % (0-5); Platelet Count 319 K/mm3 (150-450); RBC Distribution Width CV 13.5 % (11.6-14.6); RBC Distribution Width SD 41.5 fl (35.1-43.9); Red Blood Count 4.33 M/mm3 (4.2-5.4); White Blood Count 14.8 K/mm3 (4.4-11.0)
[2025-04-15 18:30] LABS: AST(SGOT) 12 U/L (<=31); Alanine Aminotransfer ALT/SGPT 11 U/L (<=34); Albumin, Serum 3.9 g/dL (3.5-5.0); Alkaline Phosphatase 94 U/L (35-104); Anion Gap 11 (5-15); BUN 17 mg/dL (4-19); BUN/Creat Ratio 23.3 RATIO (10-20); Calcium,Total 9.3 mg/dL (7.6-11.0); Carbon Dioxide 26.4 mmol/L (21.0-32.0); Chloride 101 mmol/L (98-108); Cholesterol 146 mg/dL (<=200); Globulin 3.3 g/dL (2.2-4.2); Glucose 89 mg/dL (70-99); Low Density Lipoprotein Calc. 75 mg/dL; Potassium 3.5 mmol/L (3.3-5.1); Triglycerides 79 mg/dL; Very Low Density Lipoprotein 16 mg/dL (5-40); cholesterol:hdl ratio screen 2.60
== END | disposition home or self-care (01) ==
LOC: MTLAB 16:53
PROVIDERS: PCP Internal Medicine; Referring Provider Internal Medicine; Visit Provider Internal Medicine
DX: Z00.00 Encounter for general adult medical examination without abnormal findings (principal); R73.09 Other abnormal glucose
CPT/HCPCS: 36415; 80053; 80061; 83036; 85025